=== PATIENT | male | born 2005 | race Caucasian/White ===

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

== ENCOUNTER 2023-02-24 14:00 | Emergency (ER) | payer SELFPAY ==
[2023-02-24 14:21] VITALS: BP 153/71; PULSE 91
== END 2023-02-24 15:25 | disposition home or self-care (01) ==
LOC: JD.ED 14:00
DX: K04.7 Periapical abscess without sinus (principal); E66.9 Obesity, unspecified; Z86.16 Personal history of COVID-19; Z79.899 Other long term (current) drug therapy
CPT/HCPCS: 99282

== ENCOUNTER 2023-03-31 10:47 | Emergency (ER) | payer BC, OTHER ==
[2023-03-31 10:56] VITALS: BP 164/87; PULSE 90
[2023-03-31] MEDS ORDERED: Ketorolac 30 MG/ML SDV IVPUSH ONE (11:19)
[2023-03-31] MEDS ORDERED: Acetaminophen/Codeine 300-30 MG Tab PO ONE (11:20)
== END 2023-03-31 11:36 | disposition home or self-care (01) ==
LOC: JD.ED 10:47
DX: K08.89 Other specified disorders of teeth and supporting structures (principal); E66.9 Obesity, unspecified; Z86.16 Personal history of COVID-19
CPT/HCPCS: 96374; 99282; A9270; J1885

== ENCOUNTER 2023-04-18 14:35 | Emergency (ER) | payer BC, OTHER ==
[2023-04-18 20:10] VITALS: BP 143/72; PULSE 80
== END 2023-04-18 16:42 | disposition home or self-care (01) ==
LOC: JD.ED 14:35
DX: K04.7 Periapical abscess without sinus (principal); E66.9 Obesity, unspecified; Z86.16 Personal history of COVID-19; Z68.32 Body mass index [BMI] 32.0-32.9, adult
CPT/HCPCS: 99282

== ENCOUNTER 2024-01-21 11:32 | Emergency (ER) | payer BC ==
[2024-01-21 12:47] VITALS: BP 126/84; PULSE 80
== END 2024-01-21 12:46 | disposition home or self-care (01) ==
LOC: JD.ED 11:32
DX: K04.7 Periapical abscess without sinus (principal); E66.9 Obesity, unspecified; Z68.32 Body mass index [BMI] 32.0-32.9, adult; Z86.16 Personal history of COVID-19
CPT/HCPCS: 99282